=== PATIENT | male | born 1965 | race Caucasian/White ===

== ENCOUNTER 2020-03-22 16:45 | Emergency (ER) | payer BC ==
[~2020-03-22] VITALS: Ht 180.3 cm; Wt 95.4 kg
[2020-03-22] MEDS ORDERED: DIPH,PERTUSS(ACELL),TET VAC/PF 0.5 ML SYRINGE. VAX IM ONE (17:15)
[2020-03-22] MEDS ORDERED: LIDOCAINE WITH 8.4% SOD BICARB 3 ML DISP.SYRIN. INJ ONE (17:15)
--- NOTE | 2020-03-22 17:58 | PHYS DOC ---
Past Medical History Past Medical History: Hypertension Past Surgical History: Other Additional Past Surgical Histo: bilateral elbows surgeries Smoking Status: Current Every Day Smoker Additional Information: 2 ppd Alcohol Use: Occasionally General Adult EDM: Chief Complaint: FINGER INJURY HPI: HPI: Patient is a 54 year old male patient with history of hypertension presenting today complaining of left pinky finger laceration. Patient states he was moving a couch and a piece of staple cut him. He is right-handed. Review of Systems: Review of Systems: Constitutional: Denies fever or chills. [] Musculoskeletal: Denies back pain or joint pain. [] Integument: reports left pinky finger laceration Neurologic: Denies headache, focal weakness or sensory changes. [] Psychiatric: Denies depression or anxiety. [] Heart Score: Risk Factors: Risk Factors: DM, Current or recent (<one month) smoker, HTN, HLP, family history of CAD, obesity. Risk Scores: Score 0 - 3: 2.5% MACE over next 6 weeks - Discharge Home Score 4 - 6: 20.3% MACE over next 6 weeks - Admit for Clinical Observation Score 7 - 10: 72.7% MACE over next 6 weeks - Early Invasive Strategies Current Medications: Current Medications Medications (Trade) Dose Ordered Sig/Krutis Start Time Stop Time Status Last Admin Dose Admin Diphtheria/ Tetanus/Acell Pertussis (ADACEL TDap SYRINGE) 0.5 ml ONCE ONCE 03/22/20 17:15 03/22/20 17:18 DC 03/22/20 17:23 0.5 ML Lidocaine HCl (Buffered Lidocaine 1%) 3 ml 1X ONCE 03/22/20 17:15 03/22/20 17:18 DC 03/22/20 17:22 3 ML Allergies: Allergies: Allergies Coded Allergies Type Severity Reaction Last Updated Verified No Known Drug Allergies 03/22/20 No Physical Exam: PE: Constitutional: Well developed, well nourished, no acute distress, non-toxic appearance. [] [] Skin: Distal and ventral aspect of the left pinky finger with a laceration and V-shaped approximately 2 cm long, there is no obvious tendon involvement. Full range of motion to the left pinky finger. Adequate with no sensation to the left pinky finger. +2 left radial pulse. Cap refill less than 2 seconds to left pinky finger Back: No tenderness, no CVA tenderness. [] Extremities: No tenderness, no cyanosis, no clubbing, ROM intact, no edema. [] Neurologic: Alert and oriented X 3, normal motor function, normal sensory function, no focal deficits noted. [] Psychologic: Affect normal, judgement normal, mood normal. [] Current Patient Data: Vital Signs: Vital Signs Date Time Temp Pulse Resp B/P (MAP) Pulse Ox O2 Delivery O2 Flow Rate FiO2 03/22/20 16:50 98.0 92 20 175/107 (129) 94 Room Air 98.0 EKG: EKG: [] Radiology/Procedures: Radiology/Procedures: Laceration/Wound Repair Wound Location: Left pinky finger Wound's Depth, Shape: V Wound Length (cm): Approximately 2 cm Wound Explored: clean Irrigated w/ Saline (ccs): 30 Betadine Prep?: Y Anesthesia: 1% of buffered lidocaine Volume Anesthetic (ccs): Approximately 2 cc Wound Repaired With: Ethilon Suture Size/Type: 4.0/interrupted sutures Number of Sutures: 5 Progress : Wound was covered with nonstick dressing Course & Med Decision Making: Course & Med Decision Making Pertinent Labs and Imaging studies reviewed. (See chart for details) Patient has left pinky finger laceration that was closed by me as noted in procedures. Wound care instructions and return precautions provided. Tetanus updated. Rambo Disclaimer: Rambo Disclaimer: This electronic medical record was generated, in whole or in part, using a voice recognition dictation system. Departure Departure Impression: Primary Impression: Finger laceration Qualified Codes: S61.217A - Laceration without foreign body of left little finger without damage to nail, initial encounter Disposition: 01 DC HOME SELF CARE/HOMELESS Condition: STABLE Referrals: NO PCP (PCP) follow up with your doctor or ER in 7 days for stitches removal Patient Instructions: Fingertip Laceration Additional Instructions: You have left pinky finger laceration that was closed with stitches. Keep the dressing on for 24 hours. If is not bleeding or draining keep the finger open to air starting tomorrow. Apply Neosporin to the laceration site twice a day. You can wash your hands as needed. Do not soak your affected finger in water. Follow-up with your own doctor or the emergency room in 7 days for stitches removal TINO VILLANUEVA APRN Mar 22, 2020 17:58
[2020-03-22 18:02] VITALS: BP 164/98
== END 2020-03-22 18:02 | disposition home or self-care (01) ==
LOC: ER 16:45
DX: S61.217A Laceration without foreign body of left little finger without damage to nail, initial encounter (principal); I10 Essential (primary) hypertension; F17.200 Nicotine dependence, unspecified, uncomplicated; Y28.8XXA Contact with other sharp object, undetermined intent, initial encounter; Y93.89 Activity, other specified; Y92.89 Other specified places as the place of occurrence of the external cause; Y99.8 Other external cause status
CPT/HCPCS: 12001; 90471; 90715; 99283; J3490